=== PATIENT | male | born 1990 | race Caucasian/White ===

== ENCOUNTER 2017-01-22 12:57 | Emergency (ER) | payer SELFPAY ==
[~2017-01-22] VITALS: Ht 152.4 cm; Wt 160.0 kg
[~2017-01-22 12:57] MED LIST: CYCL-36 PO; IBUP800 PO; PRED50TA PO
[2017-01-22 12:58] VITALS: BP 194/110; PULSE 80; RESP 20; TEMP 98.9; O2SAT 99
[2017-01-22 13:11] VITALS: BP 174/101; PULSE 72
--- NOTE | 2017-01-22 13:23 | PD ---
HPI Chief Complaint: Injury Time Seen by Provider: 13:20 Travel History International Travel<30 days: No Contact w/Intl Traveler<30days: No Traveled to known affect area: No History of Present Illness HPI 26-year-old male with no significant medical history presents to the emergency department for evaluation of a possible nail in his left thigh. Patient had an air gun he alleges had no safety. While facing downward, a small nail used for finished went into his left thigh. He reports no pain at the site. Denies any alterations in sensation or limitations in range of motion. He is uncertain of his tetanus status. He has no other symptoms to report. [facility] Past Medical History Medical History: Denies Significant Hx Social History Alcohol Use: No Tobacco Use: Yes Substance Use: No Allergies-Medications (Allergen,Severity, Reaction): Coded Allergies: No Known Allergies (Unverified , 01/15/16) Reported Meds & Prescriptions Reported Meds & Active Scripts Active Keflex (Cephalexin) 500 Mg Cap 500 Mg PO Q6H 5 Days Flexeril (Cyclobenzaprine HCl) 10 Mg Tab 10 Mg PO TID PRN Deltasone (Prednisone) 50 Mg Tab 50 Mg PO DIRECTED 1 TAB PO DAILY X 4 DAYS, THEN 1/2 TAB PO DAILY X 4 DAYS. Motrin 800 Mg Tab (Ibuprofen) 800 Mg Tab 800 Mg PO Q8H PRN 10 Days Review of Systems Except as stated in HPI: all other systems reviewed are Neg Physical Exam Narrative GENERAL: Well-nourished, well-developed male patient, ambulatory with a nonantalgic gait no acute distress. SKIN: Focused skin assessment warm/dry. 3 mm size puncture wound on the anterior aspect of the left thigh. Very mild erythema surrounding this. No bleeding HEAD: Normocephalic. EYES: No scleral icterus. No injection or drainage. NECK: Supple, trachea midline. No JVD or lymphadenopathy. CARDIOVASCULAR: Regular rate and rhythm without murmurs, gallops, or rubs. RESPIRATORY: Breath sounds equal bilaterally. No accessory muscle use. GASTROINTESTINAL: Abdomen soft, non-tender, nondistended. MUSCULOSKELETAL: No cyanosis, or edema. Patient has full flexion and extension of the knee and hip of the left lower extremity. There is no pain with movement. Distal pulses are palpable. Cap refill is within normal limits. BACK: Nontender without obvious deformity. No CVA tenderness. Data Data Last Documented VS Vital Signs Date Time Temp Pulse Resp B/P (MAP) Pulse Ox O2 Delivery O2 Flow Rate FiO2 01/22/17 15:17 01/22/17 13:11 72 01/22/17 12:58 98.9 20 99 Orders Orders Femur (Ap & Lat/2vws) (01/22/17 ) Tetanus/Diphtheria Tox Adult (Tetanus/Di (01/22/17 13:30) Ed Discharge Order (01/22/17 14:51) MDM Medical Decision Making Medical Screen Exam Complete: Yes Emergency Medical Condition: Yes Medical Record Reviewed: Yes Differential Diagnosis Foreign body versus puncture wound versus tendon injury Narrative Course 26-year-old male presents to the emergency department for evaluation of a puncture wound, possible foreign body to the left thigh. The affected extremity is neurovascularly intact. There are no limitations in range of motion. X-ray imaging is complete and patient is updated on his tetanus. Last Impressions Femur X-Ray 01/22/17 0000 Signed Impressions: Service Date/Time: Sunday, January 22, 2017 13:40 - CONCLUSION: 1. Small radiodense foreign body within the soft tissues of the left thigh. Sergio Olvera MD I have discussed the findings with the patient and my attending physician. At this time I do not feel it is in the patient's best interest to go digging for this foreign body and advised that he follow-up with general surgery. He will be put on antibiotics empirically. He is counseled on care. He agrees to return immediately with any acute worsening symptoms. Diagnosis Primary Impression: Puncture wound of thigh with foreign body Qualified Codes: S71.142A - Puncture wound with foreign body, left thigh, initial encounter Referrals: General Surgeon Primary Care Physician Patient Instructions: General Instructions, Soft Tissue Foreign Body (GEN) Additional Instructions: You will need to seek follow-up with a primary care provider and possibly general surgery for removal of this foreign body Do not try to remove it Do not squeeze the area Start antibiotics at to reduce risk of infection today Return immediately to the emergency department with any acute worsening of symptoms Med/Other Pt SpecificInfo: Prescription(s) given Scripts Cephalexin (Keflex) 500 Mg Cap 500 MG PO Q6H for Infection for 5 Days, #20 CAP 0 Refills Prov: Sylwia Sheth 01/22/17 Disposition: 01 DISCHARGE HOME Condition: Stable Sylwia Sheth Jan 22, 2017 13:23
[2017-01-22] MEDS ORDERED: TETANUS/DIPHTHERIA TOXOID ADULT 0.5 ML VIAL IM ONE (13:30)
--- NOTE | 2017-01-22 14:01 | RADRPT ---
EXAM DATE/TIME: 01/22/2017 13:40 [facility] COMPARISON: No previous studies available for comparison. INDICATIONS : Foreign body in lrft femur, nail gun went off in his leg today. MEDICAL HISTORY : None. SURGICAL HISTORY : None. ENCOUNTER: Initial ACUITY: 1 day PAIN SCORE: Non-responsive. LOCATION: Left femur FINDINGS: The examination demonstrates a small metallic foreign body in the deep subcutaneous tissues of the an terior left thigh. The small nail is seen overlying the mid aspect of the left thigh. CONCLUSION: 1. Small radiodense foreign body within the soft tissues of the left thigh. Sergio Olvera MD on January 22, 2017 at 13:59 Board Certified Radiologist. This report was verified electronically.
[2017-01-22] MEDS ORDERED: CEPH-460 PO (14:52)
== END 2017-01-22 15:19 | disposition home or self-care (01) ==
LOC: NEPK 12:57
DX: S71.142A Puncture wound with foreign body, left thigh, initial encounter (principal); Z23 Encounter for immunization; Z72.0 Tobacco use; W29.4XXA Contact with nail gun, initial encounter
CPT/HCPCS: 73552; 90471; 90714